=== PATIENT | female | born 1955 | race Two or more races ===

== ENCOUNTER 2017-01-17 06:12 | Inpatient (IN) | payer OTHER ==
[2017-01-17 07:04] VITALS: BP 140/77
[2017-01-17] MEDS ORDERED: Magnesium Hydroxide (MOM) 30 mL UDC PO PRN (15:21)
[2017-01-17] MEDS ORDERED: Hydrocodone/APAP 10 mg/325 mg Tab PO PRN (15:21)
[2017-01-17] MEDS ORDERED: Hydrocodone/APAP 5mg/325mg Tab PO PRN (15:21)
[2017-01-17] MEDS: INSULIN ASPART SLIDING SCALE 100 UNITS/ML UNIT SUBQ SCH ×2 (15:21→21:03)
[2017-01-17] MEDS ORDERED: Maalox 30 mL Cup PO PRN (16:30)
[2017-01-17] MEDS ORDERED: INSULIN ASPART SLIDING SCALE 100 UNITS/ML UNIT SUBQ SCH (16:30)
--- NOTE | 2017-01-17 22:49 | Consultation ---
HISTORY OF PRESENT ILLNESS: The patient is a 61-year-old. The patient was transferred from [facility] with complaints of chest pain. The patient is being managed by Internal Medicine and Cardiology. Neurologic consultation because of numbness and pain in the legs and feet, at times cramps. She says she has had this for some years now. Not sure whether she followed with the neurologist or not. She was given gabapentin 300 mg three times a day. PAST MEDICAL HISTORY: Diabetes, previous history of TIA, history of hypertension, and history of hyponatremia and encephalopathy in the past. Questionable stroke. PAST SURGICAL HISTORY: Gallbladder and appendix. MEDICATIONS: Per reconciliation include gabapentin 300 t.i.d. Rest as per reconciliation. The patient is also on aspirin 81. REVIEW OF SYSTEMS: Twelve-point negative except for above. PHYSICAL EXAMINATION: VITAL SIGNS: Temperature 98.4, blood pressure 150/84, and pulse is around about 80. NECK: Supple. No bruits. HEART: Sounds S1 and S2. LUNGS: Clear. ABDOMEN: Soft. NEUROLOGIC: Awake and alert. She will answer questions. Speech is normal. CRANIAL: Pupils react to light. Full eye movement. No nystagmus. No facial weakness. MOTOR: She will lift both arms up and lift both legs up. REFLEXES: -1 in upper extremity, essentially absent at the knees and ankles. IMPRESSION: 1. Chest pain, management with Internal Medicine and Cardiology. 2. Neuropathy. 3. Cramps. 4. Diabetes. 5. History of previous transient ischemic stroke. 6. Hypertension. MANAGEMENT: Continue with gabapentin. The patient should follow up outpatient with Neurology. JOB# [id number]
[2017-01-18] MEDS: Sodium Chloride 0.9% 1,000 ML IV SCH (03:30)
[2017-01-18] MEDS: INSULIN ASPART SLIDING SCALE 100 UNITS/ML UNIT SUBQ SCH ×4 (06:46→20:32)
[2017-01-18 07:10] LABS: % BASOPHILS 0.3 % (0.0-2.0); % EOSINOPHILS 0.5 % (0.0-5.0); % LYMPHOCYTES 17.8 % (20.0-50.0); % MONOCYTES 5.6 % (2.0-10.0); % NEUTROPHILS 75.8 % (40.0-80.0); HEMATOCRIT 29.3 % (35.0-45.0); HEMOGLOBIN 10.2 gm/dL (11.7-15.5); MEAN CELL VOLUME 87.6 fl (81-100); MEAN CORPUSCULAR HEMOGLOBIN 30.4 pg (27.0-31.0); MEAN CORPUSCULAR HGB CONC 34.7 pg (28.0-36.0); NEUTROPHILE ABSOLUTE 6.6 Th/cmm (1.8-8.0); PLATELET COUNT 217 Th/cmm (150-400); RED BLOOD COUNT 3.35 Mil/cmm (3.80-5.10); RED CELL DISTRIBUTION WIDTH 13.1 % (11.5-20.0); WHITE BLOOD COUNT 8.6 Th/cmm (4.8-10.8)
[2017-01-18] MEDS ORDERED: INSULIN 70/30 100 UNITS/ML SUBQ SCH (07:30)
[2017-01-18 07:38] LABS: ALB/GLOB RATIO 1.3 (1.0-1.8); ANION GAP 4.3 (7.0-16.0); BILIRUBIN,TOTAL 0.8 mg/dL (0.3-1.0); BUN/CREATININE RATIO 22.9; CALCIUM SERUM 8.9 mg/dL (8.6-10.3); CARBON DIOXIDE 26.3 mEq/L (21.0-31.0); CREATININE - SERUM 2.1 mg/dL (0.6-1.2); MAGNESIUM 1.9 mg/dL (1.9-2.7); PHOSPHOROUS 4.5 mg/dL (2.5-5.0); POTASSIUM SERUM 4.6 mEq/L (3.5-5.1); URIC ACID 7.6 mg/dL (2.3-6.6)
--- NOTE | 2017-01-18 15:51 | Diagnostic Imaging Report ---
Bilateral lower extremity DVT study HISTORY: Thrombophlebitis COMPARISON: None Technique: Longitudinal and transverse sonographic images of the bilateral lower extremity veins were obtained with doppler analysis. FINDINGS: There is normal compressibility, augmentation and phasicity of the bilateral common femoral, superficial femoral, popliteal, and posterior tibial veins. No thrombus is visualized. IMPRESSION: No evidence of thrombus within the bilateral lower extremity veins.
--- NOTE | 2017-01-18 15:51 | Diagnostic Imaging Report ---
Carotid ultrasound HISTORY: CVA COMPARISON: None Technique: Longitudinal and transverse sonographic sector images of the carotid arteries were obtained with doppler analysis. FINDINGS: Exam of the right side demonstrates intimal thickening and moderate atherosclerotic vascular disease, greatest within the mid and distal right ICA with velocity of right distal internal carotid artery at 171 cm/second. Antegrade vertebral artery flow is demonstrated. Exam of the left side demonstrates intimal thickening and moderate atherosclerotic vascular disease. No evidence of elevated velocity or velocity ratios. Antegrade vertebral artery flow is demonstrated. Incidentally noted is a 2.2 x 1.5 cm heterogeneous solid nodule within the right lobe of the thyroid gland. IMPRESSION: Moderate atherosclerotic vascular disease. There is increased velocity of the right mid and right distal internal carotid arteries greatest along the right distal internal carotid artery. This may signify 50-69% vessel narrowing based on peak systolic velocity criteria. If indicated, CT angiography of the neck may be obtained for further assessment. 2.2 x 1.5 cm nodule within the right lobe of the thyroid gland. Dedicated follow-up thyroid ultrasound is recommended.
--- NOTE | 2017-01-18 15:57 | Diagnostic Imaging Report ---
Bilateral lower extremity arterial Doppler study HISTORY: Peripheral vascular disease COMPARISON: None Technique: Longitudinal and transverse sonographic images of the bilateral lower extremity arteries were obtained with doppler analysis. FINDINGS: Exam of the right side demonstrates intimal thickening and mild to moderate generalized atherosclerotic vascular disease with primarily biphasic flow noted. The right ankle-brachial vertex is 1.0 Exam of the left side demonstrates intimal thickening and mild to moderate atherosclerotic vascular disease. There is primarily biphasic flow throughout the left lower extremity arterial system. The left ankle brachial index is 1.0 No evidence of occlusion. IMPRESSION: Mild to moderate generalized atherosclerotic vascular disease. No evidence of hemodynamically significant stenosis.
[2017-01-19] MEDS: Sodium Chloride 0.9% 1,000 ML IV SCH (04:46)
--- NOTE | 2017-01-19 05:04 | Progress Notes ---
SUBJECTIVE: The patient is awake and alert. The patient denies any chest pain or shortness of breath. OBJECTIVE: VITAL SIGNS: Temperature is 97.4, pulse 67, blood pressure per nursing, respiratory rate 20, and O2 sat is 94% on room air. CARDIOVASCULAR: S1 and S2. RESPIRATORY: Clear. GASTROINTESTINAL: Soft, positive bowel sounds. LABORATORY DATA: Hematology: WBC 8.6, hemoglobin 10.2, hematocrit 29.3, platelet count of 217; 72% lymphocytes. Chemistry; sodium 129, potassium 4.6, chloride 102, bicarb 26, anion gap 4.3, BUN 48, creatinine 2.1. Glucose is 220. Uric acid 7.6, calcium 8.9, phosphorus 4.5, magnesium is 1.9, total bilirubin 0.8, AST is 424, ALT is 153, alkaline phosphatase 740, creatine kinase 77, troponin 0.01, total protein is 5.7, albumin 3.2, globulin 2.5. Triglyceride 210, cholesterol 142, LDL 64, HDL is 50, TSH per labs. ASSESSMENT: 1. Chest pain (improved). 2. Rule out acute coronary syndrome. 3. Hyponatremia. 4. Anemia. 5. Acute kidney injury. 6. Hyperglycemia. 7. Diabetes mellitus. 8. Diabetic nephropathy. 9. Hypercalcemia. 10. Transaminitis. 11. Hypoalbuminemia. 12. Protein-calorie malnutrition (moderate). 13. Dyslipidemia. PLAN: Continue current medication and treatment. Obtain labs in the a.m. Awaiting Cardiology consultation. We will obtain a Nephrology consultation regarding acute kidney injury. We will obtain a GI consultation regarding transaminitis. We will obtain ultrasound regarding transaminitis. We will obtain kidney ultrasound regarding acute kidney injury. JOB# [id number] BERTA
--- NOTE | 2017-01-19 05:18 | Consultation ---
INPATIENT GASTROINTESTINAL CONSULTATION REFERRING PHYSICIAN: Dr. Martinez. REASON FOR CONSULTATION: Elevated LFTs. HISTORY OF PRESENT ILLNESS: A 61-year-old female, who was brought to the hospital and they noticed that the LFTs are elevated, and therefore they called GI. The patient denies having any abdominal pain, had some nausea, but no hematemesis or coffee-ground emesis. Denies having any diarrhea. PAST MEDICAL HISTORY: Diabetes, TIA, hypertension, possible stroke in the past. PAST SURGICAL HISTORY: Cholecystectomy, appendectomy. FAMILY HISTORY: Noncontributory. SOCIAL HISTORY: Denies tobacco, alcohol or IV drug usage. ALLERGIES: None. CURRENT MEDICATIONS: Tylenol, Delmont, Maalox, Ecotrin, Neurontin, insulin, Ativan, Trental, Actos. REVIEW OF SYSTEMS: A 10-point review of systems was performed and pertinent positives complaining of chest pain. PHYSICAL EXAMINATION: VITAL SIGNS: Temperature 97.7, breathing 19, pulse of 63, blood pressure 103/59, satting 96%. GENERAL: In no apparent distress. EYES: Anicteric, normal conjunctivae. HEENT: Normocephalic, atraumatic. Moist mucous membranes. NECK: Soft, supple. CHEST: Some coarse breath sounds. CARDIOVASCULAR: Regular rate and rhythm. ABDOMEN: Soft, nontender, nondistended. SKIN: Warm and dry. EXTREMITIES: Reveal no cyanosis. LABORATORY DATA: Show white count 8.6, hemoglobin 10.2, platelets of 217, total bilirubin 0.8, AST 424, ALT 153, alkaline phosphatase 170. IMPRESSION: A 61-year-old female with elevated liver function tests, could be related to underlying cardiac, but on the other hand, the patient may have underlying liver disease. PLAN: 1. Check liver labs. 2. Obtain abdominal ultrasound. 3. Continue supportive care. 4. Would defer to Cardiology for management of the chest pain and also the primary care provider. Thank you for allowing me to participate. Please call me if you have any questions. JOB# [id number]
--- NOTE | 2017-01-19 05:38 | Consultation ---
CARDIOLOGY CONSULTATION HISTORY OF PRESENT ILLNESS: This patient is seen on courtesy of Dr. West Martinez as the patient is coming with chest pain and has comorbid risk factors. The patient states that she had chest pain which woke her up and it was in the lower part of the central chest area on the left side. It was sharp pain lasting for a few seconds to up to 1 minute and subsiding very soon, but coming back again. It lasted about 3 hours. As it was significant and lasting and kept coming back pain, so she asked her daughter, Arvind, to call EMS, otherwise 911, and the patient was brought to the Emergency Room. The patient denies any association of the pain with position, food swallowing, or deep breathing. Also, she denies of any associated symptoms like feeling nausea, vomiting, cold sweats, palpitation, or loss of consciousness or dizziness. PAST MEDICAL HISTORY: History of hypertension, diabetes mellitus type 2, history of CVA in the past, and she states that she had CVA or TIA in last September 2016 and history of electrolyte disorder. By looking at the history and neurologist's consultation, also that there is a questionable CVA, but possible TIA she is having. She also has dyslipidemia. She has history of encephalopathy secondary to electrolyte disorder, mainly hyponatremia. PAST SURGICAL HISTORY: Cholecystectomy and appendectomy. REVIEW OF SYSTEMS: Nothing contributory from cardiac point of view except as mentioned above. ALLERGIES: None known. MEDICATIONS: Reviewed and they are gabapentin, aspirin, and atorvastatin. She takes metformin. PHYSICAL EXAMINATION: GENERAL: The patient is a 61-year-old female, fully alert and oriented, well-developed, well-nourished. Not in acute distress. VITAL SIGNS: Stable. Please refer to the RN recording. HEENT: Normal. NECK: Supple. JVP is flat. No lymphadenopathy. Thyroid not palpable. Carotids are equally palpable. No bruit present. CHEST: Equal bilaterally. There is chest wall tenderness present on the left side from the sternocostal area and reproducible pain. LUNGS: Clinically clear. CARDIOVASCULAR: PMI not palpable. Heart sounds normal. No gallops or murmur is appreciated. ABDOMEN: Soft. No organomegaly. No palpable mass. CENTRAL NERVOUS SYSTEM: Grossly normal. EXTREMITIES: No edema. No cyanosis. Peripheral pulsations are equal bilaterally. LABORATORY DATA: Lab work is showing that the CBC is normal except that hemoglobin is slightly low to 10.2 with hematocrit of 29.3. Chem-12, electrolytes are normal, but BUN is 48, creatinine 2.1. Glucose is elevated. Hemoglobin A1c is 11.4. Hepatic functions are abnormal. AST is 424 and ALT is 153. Alkaline phosphatase 140. Cholesterol is normal. HDL is 50. LDL is 64. TSH is normal. The EKG is not showing any acute changes. Troponin initial one is normal at 0.01, and that was essentially within normal range. IMPRESSION: 1. Chest pain, atypical, and it is most likely secondary to anterior chest wall syndrome, doubt any acute coronary syndrome or acute myocardial infarction. 2. Cannot rule out the coronary artery disease, the cardiac risk factors are of the female, age, hypertension, hypertensive heart disease, and has dyslipidemia. 3. Also, has diabetes mellitus type 2 with nephropathy. 4. Abnormal LFT, etiology undetermined at this time, may need further evaluation for that. PLAN: I will continue with present management, hold statin in view of liver dysfunction. I will do serial troponin and EKG. Optimize medical management at this time after we get the antiinflammatory once there is no contraindication to do that. Control hypertension. Control heart rate and better control of diabetes mellitus. We will get echocardiogram to evaluate LV function and also followup EKG. We will arrange the stress test most likely on outpatient basis as we do not have availability of stress test at this facility. It could be arranged on an outpatient basis at my office. Further cardiac workup and management will be initiated after initial reports and results and response to the therapy. JOB# [id number] BERTA
[2017-01-19] MEDS: INSULIN ASPART SLIDING SCALE 100 UNITS/ML UNIT SUBQ SCH ×4 (06:41→21:36)
[2017-01-19 06:54] LABS: % BASOPHILS 0.7 % (0.0-2.0); % EOSINOPHILS 5.6 % (0.0-5.0); % MONOCYTES 5.2 % (2.0-10.0); % NEUTROPHILS 58.5 % (40.0-80.0); HEMATOCRIT 30.5 % (35.0-45.0); HEMOGLOBIN 10.5 gm/dL (11.7-15.5); MEAN CELL VOLUME 87.1 fl (81-100); MEAN CORPUSCULAR HEMOGLOBIN 30.1 pg (27.0-31.0); MEAN CORPUSCULAR HGB CONC 34.6 pg (28.0-36.0); MEAN PLATELET VOLUME 6.9 fl; NEUTROPHILE ABSOLUTE 2.7 Th/cmm (1.8-8.0); PLATELET COUNT 221 Th/cmm (150-400); RED CELL DISTRIBUTION WIDTH 13.2 % (11.5-20.0)
[2017-01-19 06:55] LABS: WHITE BLOOD COUNT 4.4 Th/cmm (4.8-10.8)
[2017-01-19 07:26] LABS: ALB/GLOB RATIO 1.2 (1.0-1.8); ANION GAP 9.3 (7.0-16.0); BILIRUBIN,TOTAL 0.8 mg/dL (0.3-1.0); BUN/CREATININE RATIO 25.8; CALCIUM SERUM 9.4 mg/dL (8.6-10.3); CARBON DIOXIDE 29.3 mEq/L (21.0-31.0); CREATININE - SERUM 1.9 mg/dL (0.6-1.2); MAGNESIUM 2.2 mg/dL (1.9-2.7); PHOSPHOROUS 4.3 mg/dL (2.5-5.0); POTASSIUM SERUM 5.6 mEq/L (3.5-5.1)
[2017-01-19] MEDS ORDERED: INSULIN 70/30 100 UNITS/ML SUBQ SCH (07:30)
[2017-01-19 07:36] LABS: INR 1.09 (0.5-1.4); PROTHROMBIN TIME (TEST) 11.4 SECONDS (9.5-11.5)
--- NOTE | 2017-01-19 09:55 | Diagnostic Imaging Report ---
Abdominal ultrasound HISTORY: Abnormal laboratory data, pain The liver exhibits a homogeneous parenchyma. No focal lesions. The gallbladder is not seen consistent with the patient's surgical history. The common bile duct measures 9 mm in diameter. This is within normal limits status post cholecystectomy. No abnormality seen in the region of the pancreas. Right kidney appears normal. Slight irregularity of the contour of the left kidney that may be associated scarring. No definite focal lesions or hydronephrosis. The spleen appears normal in size. No other retroperitoneal or intra-abdominal abnormalities. IMPRESSION: 1. Findings consistent with a prior cholecystectomy 2. No other acute abnormalities
--- NOTE | 2017-01-19 10:26 | General Progress Note ---
Subjective - Review of Systems Service Date: 01/19/17 Subjective: Denies c/o this AM. For ultrasound of kidneys today Objective - Results Result Diagrams: 01/19/17 06:35 01/19/17 06:35 Recent Labs: Laboratory Last Values WBC 4.4 Th/cmm (4.8-10.8) L D 01/19/17 06:35 RBC 3.50 Mil/cmm (3.80-5.10) L 01/19/17 06:35 Hgb 10.5 gm/dL (11.7-15.5) L 01/19/17 06:35 Hct 30.5 % (35.0-45.0) L 01/19/17 06:35 MCV 87.1 fl (81-100) 01/19/17 06:35 MCH 30.1 pg (27.0-31.0) 01/19/17 06:35 MCHC Differential 34.6 pg (28.0-36.0) 01/19/17 06:35 RDW 13.2 % (11.5-20.0) 01/19/17 06:35 Plt Count 221 Th/cmm (150-400) 01/19/17 06:35 MPV 6.9 fl 01/19/17 06:35 Neutrophils % 58.5 % (40.0-80.0) 01/19/17 06:35 Lymphocytes % 30.0 % (20.0-50.0) 01/19/17 06:35 Monocytes % 5.2 % (2.0-10.0) 01/19/17 06:35 Eosinophils % 5.6 % (0.0-5.0) H 01/19/17 06:35 Basophils % 0.7 % (0.0-2.0) 01/19/17 06:35 ESR 61 mm/hr (0-30) H 01/19/17 06:35 PT 11.4 SECONDS (9.5-11.5) 01/19/17 06:35 INR 1.09 (0.5-1.4) 01/19/17 06:35 PTT (Actin FS) 22.0 SECONDS (26.0-38.0) L 01/19/17 06:35 Sodium 136 mEq/L (136-145) 01/19/17 06:35 Potassium 5.6 mEq/L (3.5-5.1) H 01/19/17 06:35 Chloride 103 mEq/L (98-107) 01/19/17 06:35 Carbon Dioxide 29.3 mEq/L (21.0-31.0) 01/19/17 06:35 Anion Gap 9.3 (7.0-16.0) 01/19/17 06:35 BUN 49 mg/dL (7-25) H 01/19/17 06:35 Creatinine 1.9 mg/dL (0.6-1.2) H 01/19/17 06:35 Est GFR ( Amer) 34.6 ml/min (>90) 01/19/17 06:35 Est GFR (Non-Af Amer) 28.6 ml/min 01/19/17 06:35 BUN/Creatinine Ratio 25.8 01/19/17 06:35 Glucose 208 mg/dL (70-105) H 01/19/17 06:35 POC Glucose 201 MG/DL (70 - 105) H 01/19/17 06:08 Hemoglobin A1c % 11.4 % (4.0-6.0) H 01/17/17 15:05 Uric Acid 7.6 mg/dL (2.3-6.6) H 01/18/17 06:22 Calcium 9.4 mg/dL (8.6-10.3) 01/19/17 06:35 Phosphorus 4.3 mg/dL (2.5-5.0) 01/19/17 06:35 Magnesium 2.2 mg/dL (1.9-2.7) 01/19/17 06:35 Total Bilirubin 0.8 mg/dL (0.3-1.0) 01/19/17 06:35 AST 716 U/L (13-39) H 01/19/17 06:35 ALT 838 U/L (7-52) H 01/19/17 06:35 Alkaline Phosphatase 243 U/L (34-104) H 01/19/17 06:35 Creatine Kinase 77 U/L (30-223) 01/18/17 06:22 Troponin I 0.01 ng/mL (0.01-0.05) 01/18/17 06:22 Total Protein 6.2 gm/dL (6.0-8.3) 01/19/17 06:35 Albumin 3.4 gm/dL (3.7-5.3) L 01/19/17 06:35 Globulin 2.8 gm/dL 01/19/17 06:35 Albumin/Globulin Ratio 1.2 (1.0-1.8) 01/19/17 06:35 Triglycerides 210 mg/dL (<150) H 01/18/17 06:22 Cholesterol 142 mg/dL (<200) 01/18/17 06:22 LDL Cholesterol Direct 64 mg/dL (75-193) L 01/18/17 06:22 HDL Cholesterol 50 mg/dL (23-92) 01/18/17 06:22 TSH 1.45 uIU/ml (0.34-5.60) 01/18/17 06:22 Salicylates < 25.0 mg/L (30.0-100.0) L 01/18/17 06:22 Acetaminophen < 10.0 ug/mL (10.0-30.0) L 01/18/17 06:22 - Physical Exam Vitals and I&O: Vital Signs Temp 97.5 F 01/19/17 08:00 Pulse 81 01/19/17 08:17 Resp 18 01/19/17 08:00 BP 143/85 01/19/17 08:17 Pulse Ox 96 01/19/17 08:00 Intake & Output 01/18/17 01/19/17 01/19/17 18:59 06:59 18:59 Intake Total 1800 1000 Balance 1800 1000 Intake: Intake, IV Amount 1000 Sodium Chloride 0.9% 1, 1000 000 ml @ 60 mls/hr IV . [id number] [facility] Rx#:[id number] Oral 1800 Other: # Voids 1 # Bowel Movements 0 Active Medications: Current Medications Acetaminophen (Tylenol) 650 mg PO Q4H PRN PRN Reason: Mild Pain/Headache/T above 101 Stop: 03/18/17 15:20 Acetaminophen/Hydrocodone Bitart ([place] 10 Mg/325 Mg) 1 tab PO Q6H PRN PRN Reason: Pain (Severe) Stop: 03/18/17 15:20 Last Admin: 01/17/17 23:02 Dose: 1 tab Acetaminophen/Hydrocodone Bitart ([place] 5mg/325mg) 1 tab PO Q6H PRN PRN Reason: Moderate Pain Stop: 03/18/17 15:20 Al Hydrox/Mg Hydrox/Simethicone (Maalox) 30 ml PO Q6H PRN PRN Reason: GI DISTRESS Stop: 03/18/17 16:29 Aspirin (Ecotrin) 81 mg PO DAILY [facility] Stop: 03/19/17 08:59 Last Admin: 01/19/17 08:17 Dose: 81 mg Gabapentin (Neurontin) 300 mg PO TID [facility] Stop: 03/18/17 13:59 Last Admin: 01/19/17 08:16 Dose: 300 mg Sodium Chloride (Nacl 0.9%) 1,000 mls @ 60 mls/hr IV .[id number] [facility] Stop: 03/18/17 23:32 Last Admin: 01/19/17 04:46 Dose: 60 mls/hr Insulin Aspart (Novolog Insulin Sliding Scale) 0 units SUBQ ACHS SHANTANU PRN Reason: Protocol Stop: 03/18/17 16:29 Last Admin: 01/19/17 06:41 Dose: 5 units Insulin Human Isoph/Insulin Regular (Novolin 70/30) 23 units SUBQ QDAC SHANTANU PRN Reason: Protocol Stop: 03/20/17 07:29 Last Admin: 01/19/17 06:41 Dose: 23 units Lorazepam (Ativan) 1 mg PO Q6H PRN; Protocol PRN Reason: Anxiety/Agitation Stop: 03/18/17 15:20 Magnesium Hydroxide (Milk Of Magnesia) 30 ml PO HS PRN PRN Reason: Constipation Stop: 03/18/17 15:20 Metoprolol Tartrate (Lopressor) 25 mg PO BID [facility] Stop: 03/18/17 16:59 Last Admin: 01/19/17 08:17 Dose: 25 mg Ondansetron HCl (Zofran Odt) 4 mg PO Q6H PRN PRN Reason: Nausea / Vomiting Stop: 03/18/17 15:20 Last Admin: 01/18/17 08:58 Dose: 4 mg Pentoxifylline (Trental) 400 mg PO TIDWM [facility] Stop: 03/19/17 07:59 Last Admin: 01/19/17 08:17 Dose: 400 mg Pioglitazone HCl (Actos) 30 mg PO DAILY [facility] Stop: 03/18/17 16:19 Last Admin: 01/19/17 08:17 Dose: 30 mg Sodium Chloride (Saline Flush) 10 ml IV QSHIFT [facility] Stop: 03/18/17 19:59 Last Admin: 01/19/17 08:20 Dose: 10 ml General: Alert, Oriented x3 HEENT: Atraumatic Neck: Supple Cardiovascular: Regular rate Lungs: Clear to auscultation Extremities: Edema (trace) Assessment/Plan - Assessment Assessment: Chronic kidney disease secondary to diabetic nephropathy with acute component secondary to volume depletion, resolving Hyperkalemia, expected to improve with IVF and as renal function recovers Diabetes mellitus now on insulin avoid oral hypoglycemics BP controlled on metoprolol - Plan Plan: Continue IVF, f/u formal renal ultrasound Renal function remains stable Nutritional Asmnt/Malnutr-PDOC - Dietary Evaluation Malnutrition Findings (Please click <Entered> for more info): Nutritional Asmnt/Malnutrition Start: 01/18/17 12: 49 Text: Status: Complete Freq: Document 01/18/17 12:49 GSUN (Rec: 01/18/17 13:10 [facility] Nutritional Asmnt/Malnutrition Patient General Information Nutritional Screening High Risk Screening Diagnosis Chest pain Pertinent Medical Hx/Surgical Hx DM, TIA, HTN, hyponatremia, encephalopathy Subjective Information [address] consult and trigger for BG >180 and DM. Pt noted with chest pain and some years of numbness and pain in legs/feet. Pt was asleep during visit at lunch time. RN at bedside stated pt is currently NPO for ultrasound, but prior to pt was eating well without difficulties. 100% breakfast per EMR meal records. [facility] No significant fat/ muscle wasting noted. Pertinent Medications Novolog, Novolin, MOM, Zofran Pertinent Labs 01/17: glucose 540H, A1c 11.4H 01/18: BUN 48H, creaitnine 2.1H , glucose 220H, uric acid 7.5H , AST 424H, ALT 153H, alkaline phosphatase 140H, triglycerides 210H Nutritional Hx/Data Height 1.55 m Height (Calculated Centimeters) 154.9 Current Weight (lbs) 58.06 kg Weight (Calculated Kilograms) 58.1 Weight (Calculated Grams) 52718.8 [place] Body Weight 105lb Weight Status Approriate GI Symptoms Food Allergies No Cultural/Ethnic/[employer] Belief [place]. Usual diet at home [place]. Skin Integrity/Comment: Gabe Yañez. Skin intact. Estimated Nutritional Goals BEE in Kcals: Using Current wt Calories/Kcals/Kg CBW 58.1kg Kcals Calculated 1453-1743kcal (25-30kcal/kg) Protein: Using Current wt Protein Calculated 58g (1g/kg) Fluid: ml 1453-1743ml (1ml/kcal) Nutritional Problem 1. Problem Problem Altered nutrition related laboratory values related to Etiology DM aeb Signs/Symptoms: glucose 540H on adm, A1c 11.4H Intervention/Recommendation Comments 1. NPO at time of visit. When diet resume, recommend cardiac and [id number]. 2, Provide edu on DM as needed . Expected Outcomes/Goals Expected Outcomes/Goals 1. PO intake to meet at least 75% of estimated nutritional needs.
[2017-01-19 12:17] LABS: T4 FREE 1.37 ng/dL (0.82-1.77)
[2017-01-19] MEDS ORDERED: INSULIN 70/30 100 UNITS/ML SUBQ ONE (17:00)
[2017-01-19 18:43] LABS: URINE BILIRUBIN NEGATIVE (NEGATIVE); URINE BLOOD SMALL (NEGATIVE); URINE COLOR YELLOW; URINE GLUCOSE (UA) 500 mg/dL (NEGATIVE); URINE KETONE NEGATIVE (NEGATIVE)
[2017-01-19 18:44] LABS: URINE PH 8.5; URINE PROTEIN 100 mg/dL (NEGATIVE); URINE UROBILINOGEN 0.2 E.U./dL (0.2 - 1.0)
[2017-01-19 18:45] LABS: URINE BACTERIA NONE SEEN /hpf (NONE SEEN); URINE EPITHELIAL CELLS FEW /lpf (FEW); URINE TRIPLE PHOSPHATE CRYSTAL MODERATE /hpf (FEW)
[2017-01-19 18:54] LABS: SURFACE AREA 1.56
[2017-01-19 18:57] LABS: TOTAL PROTEIN 24 HR URINE 1794.5 mg/24 hr (0-165)
[2017-01-20] MEDS: INSULIN 70/30 100 UNITS/ML SUBQ SCH ×3 (06:35→20:19)
[2017-01-20] MEDS: INSULIN ASPART SLIDING SCALE 100 UNITS/ML UNIT SUBQ SCH ×4 (06:36→20:19)
[2017-01-20 06:51] LABS: INR 1.06 (0.5-1.4)
[2017-01-20 06:53] LABS: ALB/GLOB RATIO 1.3 (1.0-1.8); ANION GAP 8.1 (7.0-16.0); BILIRUBIN,TOTAL 0.3 mg/dL (0.3-1.0); BUN/CREATININE RATIO 31.3; CALCIUM SERUM 8.8 mg/dL (8.6-10.3); CREATININE - SERUM 1.5 mg/dL (0.6-1.2); POTASSIUM SERUM 4.1 mEq/L (3.5-5.1)
--- NOTE | 2017-01-20 09:05 | Diagnostic Imaging Report ---
Thyroid ultrasound HISTORY: Right thyroid nodule COMPARISON: None Technique: Sonography of the thyroid gland was performed in multiple planes. FINDINGS: The right lobe of the thyroid gland measures 1.5 x 2.7 x 1.6 cm and demonstrates a homogeneous echotexture. Heterogeneous nodule with peripheral echogenic foci likely calcifications is seen within the superior aspect measuring 1.9 x 1.8 x 1.8 cm. The thyroid isthmus measures 3 mm. The left lobe of thyroid and measures 3.8 x 1.2 x 1.7 cm demonstrates a homogeneous echotexture with no evidence of focal lesions. IMPRESSION: 1.9 x 1.8 cm heterogeneous nodule with probable peripheral calcifications within the superior aspect of the right lobe of the thyroid gland. Please correlate with clinical findings and old exams. Fine-needle aspiration of this nodule should be considered. Note that the histology of thyroid nodules cannot be determined sonographically.
--- NOTE | 2017-01-20 13:14 | Cardiology ---
PROCEDURE: Echocardiogram. REFERRING PHYSICIAN: West Martinez M.D. M-mode measurements are as follows. Aortic root dimension in end-diastole is 3.27 cm. Aortic valve systolic separation is 1.1 cm. Left atrial dimension in end-systole is 3.9 cm. EP septal separation is 0.68 cm. Mitral valve E/A ratio is 0.6. The left ventricular dimension in end-diastole is 3.9 cm and in end-systole 2.5 cm with ejection fraction between 60-65%. Interventricular septal thickness in end-diastole is 1.7 cm and LV posterior wall thickness in end-diastole is 1.4 cm. Doppler measurements are as follows: LV outflow tract Vmax is 1.35 meter per second. Aortic valve Vmax is 1.67 meter per second and aortic valve pressure gradient is 11.2 mmHg. Aortic valve area is 1.69 cm. Right ventricular systolic pressure is 26.5 mmHg. Doppler and carotid Doppler shows there is mild tricuspid regurgitation. There is grade 1 diastolic dysfunction present with the mitral valve. M-mode and 2D show that LV dimension and second wall motion are normal. No pericardial effusion is present. Aortic valve is calcified without any hemodynamic changes in end-diastole and end systole. Mitral valve annulus is calcified and mitral valve leaflets are also thickened. There are no hemodynamic changes suggestive of mitral valve dysfunction in end diastole or end systole. Tricuspid valve is normal. Aortic valve is calcified without hemodynamic changes in end diastole or end systole. Pulmonic valve was not well visualized. CONCLUSION: 1. LV dimension and second wall motion are normal. Ejection fraction is 60%. 2. Left ventricular hypertrophy present with grade 1 diastolic dysfunction. 3. Calcified mitral valve without stenosis or regurgitation. 4. Mitral valve annulus is calcified with thickened mitral valve leaflets without any evidence of stenosis or mitral regurgitation. 5. Mild tricuspid regurgitation present. 6. No pericardial effusion is present. 7. No structure present suggestive of vegetation. 8. Otherwise normal study for the age. JOB# [id number] [facility]
--- NOTE | 2017-01-20 13:29 | Diagnostic Imaging Report ---
Renal ultrasound HISTORY: Diabetic nephropathy. COMPARISON: Prior abdominal ultrasound performed on 01/19/2016 Technique: Sonography of the kidneys and urinary bladder was performed in multiple planes. FINDINGS: The right kidney measures 11.6 x 5.3 cm. The left kidney measures 11.3 x 5.4 cm. No evidence of focal lesions or hydronephrosis. There is borderline generalized prominence of the urinary bladder wall. No evidence of elevated postvoid residual bladder volumes. IMPRESSION: No evidence of hydronephrosis. Borderline generalized prominence of the urinary bladder wall, nonspecific.
--- NOTE | 2017-01-20 13:34 | Admit Criteria Form ---
Admit Criteria Forms - Admit Criteria Diagnosis: TELEMETRY CARE Telemetry Admission Guidelines (Place 'X' for any and all applicable criteria): Admission to telemetry [A] may be indicated for ANY ONE of the following(1)(2)(3 )(4)(5): [X]I. Cardiac disease, including ANY ONE of the following (9)(10)(11)(12)(13 ): [ ]a) Postacute NJ [ ]b) Low-risk patients with ST-segment elevation NJ who have undergone successful percutaneous coronary intervention [ ]c) Unstable angina [X]d) Suspected NJ (until it is ruled out) [ ]e) Post cardiac surgery (first 48 to 72 hours unless complications occur) [ ]f) Acute arrhythmias (including significant tachycardia or bradycardia) [B] [ ]g) Firing of an implantable cardioverter defibrillator [C] [ ]h) Suspected pacemaker or implantable cardioverter defibrillator malfunction (10) [ ]i) New administration or adjustment of an antiarrhythmic drug [D ] [ ]j) Child admitted for acute congestive heart failure [ ]j) Long QT syndrome [ ]k) Advanced heart block (eg, second-degree Mobitz type II, third- degree heart block) [ ]l) Acute myocarditis or pericarditis [ ]m) Short-term (ambulatory or inpatient) monitoring after a cardiac procedure as indicated by ANY ONE of the following [E]: [ ]i) Electrophysiologic studies [ ]ii) Percutaneous coronary intervention with stent placement [ ]iii) Pacemaker placement with cardiac conduction defect [ ]iv) Implantable cardiac defibrillator placement [ ]II. Drug overdose or poisoning with substance that causes arrhythmias or QT prolongation (eg, phenothiazines, sympathomimetic agents, cyclic antidepressants, digitalis, antiarrhythmic drugs)(15) [ ]III. Short-term (ambulatory or inpatient) monitoring after therapeutic or diagnostic procedure requiring conscious sedation or anesthesia (eg, endoscopy, elective cardioversion) [ ]IV. Acute cerebrovascular even[F](18) [ ]V. Massive blood transfusion (eg, at least 10 units of packed red blood cells in 24 hours) [ ]. Variceal bleeding after endoscopy, sclerotherapy, or IV vasopressin [ ]VII. Uncorrected electrolyte abnormalities associated with an increased risk of dangerous arrhythmia [G]; examples include [ ]a) Hyperkalemia with attributable ECG changes [ ]b) Potassium greater than 6.5 mmol/L (mEq/L) in a patient without history of chronic renal disease [ ]c) Prolonged QT attributed to hypokalemia, hypomagnesemia, or hypocalcemia [ ]VIII.Unexplained syncope or other neurologic event suspected of being due to arrhythmia due to a finding that increases risk; examples include(19)(20)(21): [ ]a) High-risk ECG findings (eg, bifascicular block, bradycardia, abnormal QT interval, ventricular pre- excitation) [ ]b) History of previous syncope due to arrhythmia [ ]c) Abnormal ventricular function (eg, reduced ejection fraction ) [ ]d) Exertional or supine syncope [ ]e) Concerning syncope characteristics (eg, sudden loss of consciousness without prodrome) [ ]f) Family history of sudden [ ]g) Use of arrhythmogenic medication [ ]h) Suspected cardiac ischemia [ ]i) Known channelopathy (eg, long QT syndrome, Brugada syndrome, or catecholaminergic paroxysmal ventricular tachycardia) [ ]j) Known structural heart disease (eg, hypertrophic cardiomyopathy , severe valvular disease) [ ]k) Palpitations preceding syncope The original [employer] content created by [employer] has been revised. The portions of the content which have been revised are identified through the use of italic text or in bold, and [employer] [email or web address] has neither reviewed nor approved the modified material. All other unmodified content is copyright [employer]. Please see references footnoted in the original [employer] edition 2016 Admit Criteria Met?: Yes
[2017-01-20 14:18] LABS: ANTITRYPSIN SERUM A1 121 mg/dL (90-200); F1 ACTIN-SMOOTH MUSC IGG 7 Units (0-19); FERRITIN 429 ng/mL (15-150); HEP B CORE IGM Negative (Negative); HEP C ANTIBODY <0.1 s/co ratio (0.0-0.9); IRON SATURATION 17 % (15-55); TIBC (LCI) 253 ug/dL (250-450); UIBC 209 ug/dL (118-369)
--- NOTE | 2017-01-20 14:30 | History & Physical ---
CHIEF COMPLAINT: Chest pressure. HISTORY OF PRESENT ILLNESS: The patient is a 61-year-old female who has been transferred from [facility]. The patient presented to the ER with few hours of substernal chest pain with pressure. The pain is not radiating with no modifying factors. No shortness of breath, diaphoresis, palpitations. No fevers or cough. The patient was given nitroglycerin x 1 and aspirin by EMS. The patient felt immediate relief of pain . No recent surgery , trauma or other complaints. REVIEW OF SYSTEMS: See history of present illness. PAST MEDICAL HISTORY: Diabetes mellitus type 2, dyslipidemia, TIA, asthma, hypertrophy of uterus, tobacco abuse, hypertensive encephalopathy, hypertensive emergency, diabetic nephropathy, chronic kidney disease stage III, hypertension, altered mental status, atherosclerosis of aorta, CVA, hyponatremia. PAST SURGICAL HISTORY: Laparoscopic cholecystectomy and appendectomy. SOCIAL HISTORY: Denies alcohol use. Denies IV drug use. Positive tobacco use. MEDICATIONS: See medication reconciliation form. PHYSICAL EXAMINATION: GENERAL: The patient is awake, alert, nontoxic in appearance. VITAL SIGNS ON ADMISSION: Temperature 98.3, pulse 74, blood pressure 140/77, respiration 18, O2 sat 97% on room air. HEENT: Normocephalic, atraumatic. Extraocular movements intact. Oropharynx clear. NECK: Supple, no thyromegaly. No lymphadenopathy. CARDIOVASCULAR: S1 and S2. No murmurs, rubs or gallops. RESPIRATORY: Clear. No wheezing, rales or rhonchi. GASTROINTESTINAL: Soft, nontender. Positive bowel sounds. GENITOURINARY: No CVA tenderness. No suprapubic tenderness. BACK: No midline tenderness. EXTREMITIES: Equal pulses bilaterally. No significant edema. SKIN: Negative. PSYCHIATRIC: Negative. NEUROLOGIC: Cranial nerves 2-12 intact. Extraocular movements are intact. Sensation intact. Neurovascularly intact. Bilateral grossly normal. Labs on admission as follows, glucose of 540. Hemoglobin A1c 11.4. RADIOLOGICAL TESTS: No new test. Labs at [facility] showed WBC of 9.2, hemoglobin 11.1, hematocrit 32.2, platelet count of 256. Electrolytes: Sodium 131, potassium 3.9, chloride 95, bicarbonate 28, anion gap of 8, BUN 26, creatinine 1.0, GFR 35. Troponin less than 0.02. Calcium 9. IMPRESSION: 1. Chest pain. 2. Rule out acute coronary artery syndrome. 3. Diabetes mellitus type 2. 4. Dyslipidemia. 5. History of cerebrovascular accident. 6. Asthma. 7. Hypertrophy of uterus. 8. Tobacco abuse. 9. Chronic kidney disease, stage III. 10. Atherosclerosis of aorta. 11. Status post laparoscopic cholecystectomy. 12. Status post appendectomy. 13. Anemia. 14. Hyponatremia. PLAN: The patient was admitted to telemetry unit. We will obtain further labs and consults. JOB# [id number] MTDD
--- NOTE | 2017-01-20 14:34 | Consultation ---
INPATIENT NEPHROLOGY CONSULTATION REASON FOR CONSULTATION: Acute kidney injury. HISTORY OF PRESENT ILLNESS: The patient is a pleasant 61-year-old woman with history of diabetes mellitus with neuropathy for greater than 25 years and hypertension who was transferred from [facility] for complaints of chest pain. The patient denies previous knowledge of kidney disease, although does endorse that she has above-mentioned diabetes for many years and her sugars are uncontrolled, 300-400s per Accu-Cheks. On examination, patient denies complaints other than not being able to urinate today. REVIEW OF SYSTEMS: No fevers, chills, nausea, vomiting, chest pain, shortness of breath, abdominal pain. Otherwise, 14-point review of systems negative except noted above. PAST MEDICAL HISTORY: Includes diabetes mellitus type 2 for greater than 25 years with associated neuropathy, hypertension as well and chest pain for which she states that this is her first episode. Otherwise, workup at [facility] was reviewed. Creatinine was 1.5. At that point, no previously documented laboratory studies are available. The patient does endorse an episode of nephrolithiasis approximately 1 year prior. PAST SURGICAL HISTORY: Noncontributory. FAMILY HISTORY: The patient does endorse a history of diabetes in the family, but no other significant problems. MEDICATIONS: Prior to admission reviewed include metformin 500 mg p.o. daily, aspirin 81 mg p.o. daily, amlodipine 5 p.o. daily, insulin Lantus and metoprolol tartrate, atorvastatin, and gabapentin 300 mg p.o. daily. OBJECTIVE EXAMINATION: VITAL SIGNS: Temperature 36, blood pressure 115/70, pulse 70, respirations 18. GENERAL APPEARANCE: Well-developed cachectic elderly woman, alert and oriented x 3. LUNGS: Clear to auscultation bilaterally. CARDIAC: Regular rate. Normal rhythm. No murmurs, rubs or gallops. EXTREMITIES: Trace edema, 1+ pulses distally. DIAGNOSTIC DATA: Available for review as of 01/18/2017, sodium 129, K 4.6, chloride 103, CO2 of 26, BUN 48, creatinine 2.1. EGFR is 25.4 mL/min, glucose 220, calcium 8.9, phos 4.5, AST 424, ALT 153, alkaline phosphatase 140, albumin is low at 3.2. IMAGING: As of 01/18/2017 reviewed. The patient had chest x-ray done at [facility] that was negative for any acute cardiopulmonary disease. ASSESSMENT AND RECOMMENDATIONS: 1. Acute kidney injury. Likely, the patient has chronic kidney disease secondary to diabetic nephropathy given poorly controlled A1c as well as Accu-Cheks. However, this may be superimposed by an acute component of renal failure secondary to dehydration. Recommend to continue normal saline as you are doing at this time. Renal ultrasound as well as urine indices will be obtained for clarification. Given that the patient's diabetes mellitus is poorly controlled, we will not be surprised if this is progression of underlying diabetic nephropathy, but we will quantify proteinuria as well to exclude concurrent deposition as well as nephrotic range proteinuria syndromes at this time. 2. Anemia secondary to chronic kidney disease. Hemoglobin is low. We will send off an iron panel. However, the patient does appear to be stable at this time. 3. Chest pain. Workup per primary team. We would advise holding off contrast studies if indicated including cardiac catheterization unless the benefits outweigh risks. If the patient is recommended to proceed for a contrast study, we would recommend hydration pre and post-contrast admission with 15 mL/Kg of normal saline in addition to current maintenance fluids. 4. Diabetes mellitus type 2, poorly controlled. Continue insulin at this time. Given low level of GFR, we would hold off on metformin. Advised continuing this patient on insulin aspart and monitoring sugars at this time with Accu-Cheks. 5. Hypertension. Blood pressure remains within goal at this time. Thank you, Dr. Martinez, for allowing us to participate in the care of this patient. We will continue to follow along closely with you. Likely, she will need to have close followup with a [place] kidney specialist as chronic kidney disease patient in [place] on discharge. JOB# [id number]
--- NOTE | 2017-01-21 03:02 | Progress Notes ---
SUBJECTIVE: The patient is awake and alert. OBJECTIVE: VITAL SIGNS: Seen. CARDIOVASCULAR: S1 and S2. RESPIRATORY: Clear. GASTROINTESTINAL: Soft. Positive bowel sounds. LABORATORY DATA: Creatinine 1.9, glucose 321. Urinalysis shows 100 protein, small blood, small leukocyte esterase. Microbiology: MRSA screen from 01/17/2017 is negative. Radiology: Bilateral LE arterial ultrasound shows [id number] atherosclerotic vascular disease and stenosis. Bilateral lower extremity ultrasound from 01/18/2017 shows no evidence of DVT. Carotid ultrasound from 01/18/2017 shows moderate atherosclerotic vascular disease. Renal ultrasound shows no evidence of hydronephrosis. ASSESSMENT: 1. Chest pain resolved Acute coronary syndrome ruled out. 2. Anemia. 3. Acute kidney injury. 4. Diabetes mellitus. 5. Hyperglycemia. 6. Transaminitis. 7. Hypoalbuminemia. 8. Protein-calorie malnutrition (moderate). PLAN: Continue current medication and treatment. Obtain labs in a.m. Further recommendation per consultation. [facility]# [id number] [facility]ENTER[facility]
--- NOTE | 2017-01-21 03:42 | Progress Notes ---
SUBJECTIVE: The patient is awake and alert. No reported chest pain. No reported shortness of breath. OBJECTIVE: VITAL SIGNS: Temperature 97.8, pulse 68, blood pressure per nursing, respiratory rate 18, and O2 sat 100% on room air. CARDIOVASCULAR: S1 and S2. RESPIRATORY: Clear. GASTROINTESTINAL: Soft. Positive bowel sounds. LABORATORY DATA: PT 11.0. Chemistry: Sodium 136, potassium 4.1, chloride per labs, bicarb 25, anion gap per labs. BUN 47 and creatinine 0.5. GFR is 37.3. Glucose 222. Calcium 8.2, total bili 0.3, AST per labs, ALT 25, alk phos 178, total protein 5.4, and albumin 2.0. ASSESSMENT: 1. Acute kidney injury. 2. Chronic kidney disease. 3. Hyperglycemia. 4. Diabetes mellitus. 5. Transaminitis. 7. Chest pain (resolved). 8. Acute coronary artery syndrome (ruled out). PLAN: Continue current medication and treatment. Obtain labs in a.m. radiation oncology manager for discharge planning. JOB# [id number] [facility]ENTER[facility]
[2017-01-21 05:11] LABS: % BASOPHILS 0.4 % (0.0-2.0); % EOSINOPHILS 4.6 % (0.0-5.0); % LYMPHOCYTES 23.2 % (20.0-50.0); % NEUTROPHILS 65.8 % (40.0-80.0); HEMATOCRIT 27.5 % (35.0-45.0); HEMOGLOBIN 9.5 gm/dL (11.7-15.5); MEAN CELL VOLUME 88.3 fl (81-100); MEAN CORPUSCULAR HEMOGLOBIN 30.5 pg (27.0-31.0); MEAN CORPUSCULAR HGB CONC 34.6 pg (28.0-36.0); MEAN PLATELET VOLUME 7.1 fl; NEUTROPHILE ABSOLUTE 4.8 Th/cmm (1.8-8.0); PLATELET COUNT 206 Th/cmm (150-400); RED BLOOD COUNT 3.12 Mil/cmm (3.80-5.10)
[2017-01-21 05:32] LABS: ALB/GLOB RATIO 1.3 (1.0-1.8); ANION GAP 8.2 (7.0-16.0); BILIRUBIN,TOTAL 0.3 mg/dL (0.3-1.0); BUN/CREATININE RATIO 30.8; CALCIUM SERUM 9.3 mg/dL (8.6-10.3); CARBON DIOXIDE 26.2 mEq/L (21.0-31.0); CREATININE - SERUM 1.3 mg/dL (0.6-1.2); POTASSIUM SERUM 4.4 mEq/L (3.5-5.1); WHITE BLOOD COUNT 7.2 Th/cmm (4.8-10.8)
[2017-01-21] MEDS: INSULIN ASPART SLIDING SCALE 100 UNITS/ML UNIT SUBQ SCH ×2 (06:41→11:42)
[2017-01-21] MEDS: INSULIN 70/30 100 UNITS/ML SUBQ SCH (06:42)
--- NOTE | 2017-01-21 22:07 | Progress Notes ---
SUBJECTIVE: The patient is awake and alert. The patient denies any acute complaints. OBJECTIVE: VITAL SIGNS: Temperature 97.4, pulse 72, blood pressure ____/77, respiratory rate 18, and O2 sat is 98% on room air. CARDIOVASCULAR: S1 and S2. RESPIRATORY: Clear. GASTROINTESTINAL: Soft. Nontender.. Positive bowel sounds. LABORATORY DATA: Hematology: WBC 7.2, hemoglobin 9.5, hematocrit 27.5, platelet 206. No left shift noted. Chemistry: Sodium is 138, potassium 4.4, chloride 108, bicarbonate 26, anion gap 8.2, BUN 40, creatinine 1.3, GFR is 44.3, glucose 110, calcium 9.3, total bili 0.3, AST 56, ALT is 273, alkaline phosphatase 137, total protein 5.5 albumin 3.1, and globulin 2.4. MICROBIOLOGY: MRSA screen from 01/17/2017 is negative. RADIOLOGY: No new radiology results. ASSESSMENT: 1. Chest pain (resolved) 2. Acute coronary artery syndrome (ruled out). 3. Anemia. 4. Acute on chronic kidney disease (improved). 5. Diabetes mellitus. 6. Transaminitis. 7. Hypoalbuminemia. 8. Protein calorie malnutrition (moderate). 9. Right lobe thyroid nodule. 10. Peripheral vascular disease. 11. Carotid stenosis. PLAN: Continue current medication and treatment. Obtain labs in a.m. We will discuss the GI on further management. clinical resource manager for discharge planning. JOB# [id number]
[2017-01-23 15:11] LABS: A/G RATIO 1.2 (0.7-1.7); ALPHA-1-GLOBULIN 0.2 g/dL (0.0-0.4); BETA GLOBULIN 0.9 g/dL (0.7-1.3); GAMMA GLOBULIN 0.5 g/dL (0.4-1.8); GLOBULIN, TOTAL 2.5 g/dL (2.2-3.9); M-SPIKE Not Observed g/dL (Not Observed); PROTEIN, TOTAL, SERUM 5.5 g/dL (6.0-8.5)
--- NOTE | 2017-01-25 23:08 | Discharge Summary ---
DISCHARGE DIAGNOSES: 1. Chest pain (resolved). 2. Acute coronary syndrome (ruled out). 3. Anemia. 4. Acute on chronic kidney disease (improved). 5. Diabetes mellitus. 6. Transaminitis. 7. Hypoalbuminemia. 8. Protein-calorie malnutrition (moderate). 9. Right lobe thyroid nodules. 10. Peripheral vascular disease. 11. Carotid stenosis. HOSPITAL COURSE: The patient is a 61-year-old female who was transferred from [facility]. The patient was admitted with diagnoses of chest pain and she has ruled out acute coronary syndrome, diabetes mellitus type 2, dyslipidemia, history of CVA, asthma, hypertrophy of uterus, tobacco abuse, chronic kidney disease stage 3, atherosclerotic disease, status post laparoscopic cholecystectomy, status post appendectomy, anemia, hyponatremia, and transaminitis. Neurology consultation obtained from Dr. Valdez regarding numbness and pain in legs. EVALUATION AND PLAN: The patient has neuropathy and recommendation is that the patient continue gabapentin. Bilateral arterial ultrasound performed on 01/18/2017 shows [id number] atherosclerotic vascular disease. No evidence of significant stenosis. Bilateral lower extremity ultrasound showed no evidence of DVT. Carotid ultrasound shows moderate atherosclerotic vascular changes. There is increased velocity of right mid and right distal internal carotid artery, along the right distal internal carotid artery, and 59% vascular narrowing. The patient also had Endocrinology consultation from Dr. Stephenson. The patient also had Cardiology consultation team from Dr. Vini Martinez. Recommendation from Cardiology, the patient's check pain is atypical, most likely anterior chest wall syndrome. The patient was ordered for serial cardiac enzymes and EKG and echocardiogram. GI consultation obtained from Dr. Darling. Recommendation was to obtain abdominal ultrasound and check liver labs. Nephrology consultation from Dr. Yusuf and also renal ultrasound performed on the patient shows no evidence of hydronephrosis. Abdominal ultrasound performed shows evidence of prior cholecystectomy, but there are no other acute abnormalities. Thyroid ultrasound performed shows nodule present on right lobe of thyroid. Echocardiogram performed on the patient showed left ventricular dimension and wall motion normal. Ejection fraction 60%. Left ventricular hypertrophy present with grade I diastolic dysfunction, calcified mitral valve without evidence of regurgitation, mitral valve annulus is calcified with thickened mitral valve leaflets without any evidence of aortic stenosis and mitral regurgitation. Mild tricuspid regurgitation present. At improvement of the patient's liver enzymes and ultrasound results being negative , the patient's case was discussed with Gastroenterology. The patient was discharged per recommendation by Gastroenterology on 01/21/2017. [facility]# [id number] [facility]ITAL[facility]
== END 2017-01-21 14:00 | disposition home or self-care (01) | DRG 469 ==
LOC: TELE 06:12
PROVIDERS: ADMIT Preventive Medicine Preventive Medicine/Occupational Environmental Medicine; ATTEND Preventive Medicine Preventive Medicine/Occupational Environmental Medicine
DX: N17.9 Acute kidney failure, unspecified (principal); E11.21 Type 2 diabetes mellitus with diabetic nephropathy; E11.40 Type 2 diabetes mellitus with diabetic neuropathy, unspecified; E44.0 Moderate protein-calorie malnutrition; R07.89 Other chest pain; N18.3 Chronic kidney disease, stage 3 (moderate); E11.51 Type 2 diabetes mellitus with diabetic peripheral angiopathy without gangrene; E11.65 Type 2 diabetes mellitus with hyperglycemia; E87.1 Hypo-osmolality and hyponatremia; E83.52 Hypercalcemia; E78.5 Hyperlipidemia, unspecified; I12.9 Hypertensive chronic kidney disease with stage 1 through stage 4 chronic kidney disease, or unspecified chronic kidney disease; R25.2 Cramp and spasm; J45.909 Unspecified asthma, uncomplicated; N85.2 Hypertrophy of uterus; F17.200 Nicotine dependence, unspecified, uncomplicated; I70.0 Atherosclerosis of aorta; D63.1 Anemia in chronic kidney disease; E04.1 Nontoxic single thyroid nodule; I65.29 Occlusion and stenosis of unspecified carotid artery; Z68.24 Body mass index [BMI] 24.0-24.9, adult; Z90.49 Acquired absence of other specified parts of digestive tract; Z86.73 Personal history of transient ischemic attack (TIA), and cerebral infarction without residual deficits; Z79.84 Long term (current) use of oral hypoglycemic drugs
CPT/HCPCS: 36415-UA; 76536-TC; 76700-TC; 76770-TC; 80053-TC; 80061-TC; 80074-90; 80329-TC; 81001-TC; 81050-TC; 82103-90; 82306-90; 82390-90; 82533-90; 82550-TC; 82570-TC; 82575-TC; 82607-90; 82728-90; 82947-TC; 82948-90; 83036-90; 83516-90; 83540-90; 83550-90; 83735-TC; 84100-TC; 84156-TC; 84165-90; 84300-TC; 84439-90; 84443-TC; 84484-TC; 84550-TC; 85025-TC; 85610-TC; 85652-TC; 85730-TC; 86255-90; 93005; 93880-TC; 93925-TC; 93970-TC-50; 97530; J1815; J7030; Q0162; X3904; Z7610